=== PATIENT | male | born 1995 | race Caucasian/White ===

== ENCOUNTER 2018-08-11 08:23 | Emergency (ER) | payer OTHER, SELFPAY ==
[2018-08-11 08:24] VITALS: BP 122/71; PULSE 83; RESP 16; TEMP 36.6; O2SAT 100; BMI 23.7
--- NOTE | 2018-08-11 08:58 | ED.VISSUMM ---
- ER Visit Summary Date of Service: 08/11/18 Chief Complaint: Poison key History of Present Illness: The patient is a 22 M who was [place] [employer] [place] days ago. He now has poison key rash to his arms, chest, and abdomen over the past 4 days. He states he has had similar in the past. He has not been taking any [id number] medication for this. Physical Examination: Vital signs unremarkable. Patient sitting on bedside in no acute distress. Heart is regular rate and rhythm. Lung sounds are clear. Skin examination reveals red, slightly raised rash to the bilateral arms, chest, abdomen consistent with contact dermatitis. No sign of secondary infection. Test Results: [] Emergency Department Course and Treatment: Patient be given IM Kenalog here along with p.o. Benadryl. He is given a prescription for Benadryl. Treatment Plan: [] Disposition: Discharge Impression: Poison key This note was generated with [employer] dictation software. It may contain incorrect words, spelling, and punctuation that were not noted in review of the chart prior to signing ED Disposition - Plan for ED Patient: Disposition: Home or Assisted Living Instructions: ED Dermatitis Poison Key Prescriptions: DiphenhydrAMINE [Benadryl] 50 mg PO TID PRN PRN #30 capsule PRN Reason: Itching Referrals: Carlos Roche MD [Primary Care Provider] - As Needed
[2018-08-11] MEDS: Triamcinolone Acetonide 40 MG/ML Vial IM (09:07)
[2018-08-11] MEDS: DiphenhydrAMINE 25 MG Capsule 50 MG PO (09:07)
== END 2018-08-11 09:11 | disposition home or self-care (01) ==
PROVIDERS: Emergency Provider Emergency Medicine; Family Provider Pediatrics; PCP Pediatrics
DX: L23.7 Allergic contact dermatitis due to plants, except food (principal); Z72.0 Tobacco use
CPT/HCPCS: 96372; 99283

== ENCOUNTER 2018-12-15 17:22 | Emergency (ER) | payer OTHER, SELFPAY ==
[2018-12-15 17:23] VITALS: BP 120/63; PULSE 71; RESP 18; TEMP 36.2; O2SAT 99; BMI 21.0
--- NOTE | 2018-12-15 17:32 | ED.VISSUMM ---
- ER Visit Summary Date of Service: 12/15/18 Chief Complaint: [Rash] History of Present Illness: The patient is a 22 M [presents to the emergency department with a rash that started 2 days ago. 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 The rash is pruritic. Patient denies any new soaps, detergents, or other allergens. He denies any medications. Denies any fever or recent illness.] Physical Examination: [HEENT-PERRLA, EOMI. Cranial nerves II through XII grossly intact. TMs clear. Mucous membranes moist. No adenopathy. Cardiovascular-regular rate and rhythm without murmur or ectopy Lungs-clear to auscultation, chest wall stable without crepitus or subcu emphysema Abdomen-normoactive bowel sounds, soft, nontender, no rebound or rigidity, no peritoneal signs. Skin exam-she has a diffuse erythematous rash involving the upper and lower extremities that is erythematous and slightly raised. Rash is blanchable. Rash is pruritic. No vesicles noted. Extremities-intact ?4, normal range of motion, normal pulses, atraumatic] Test Results: [None indicated] Emergency Department Course and Treatment: [She was started on 40 mg of prednisone p.o.] Treatment Plan: [Patient will be treated with prednisone and Atarax and referred to primary care physician for follow-up in 5 to 7 days] Disposition: [Discharged home stable condition] Impression: [Rhus Dermatitis] This note was generated with [employer] dictation software. It may contain incorrect words, spelling, and punctuation that were not noted in review of the chart prior to signing ED Disposition - Plan for ED Patient: Referrals: Carlos Roche MD [Primary Care Provider] -
--- NOTE | 2018-12-15 17:35 | ED.DEP ---
ED Disposition - Plan for ED Patient: Instructions: Poison [place] Dermatitis Prescriptions: hydrOXYzine tablet [Atarax tablet] 10 mg PO TID PRN PRN #20 tab PRN Reason: Itching Prescription Printed Prednisone [Deltasone] 20 mg PO BID #14 tab Prescription Printed Referrals: Carlos Roche MD [Primary Care Provider] - 5-7 Days
[2018-12-15] MEDS: predniSONE 20 MG Tablet 40 MG PO (17:39)
[2018-12-15 17:44] VITALS: RESP 16
--- NOTE | 2018-12-15 17:45 | ED.RN ---
REVIEWED D/C INSTRUCTIONS, FOLLOW UP CARE, PRESCRIPTIONS, AND S/S THAT WOULD WARRANT A RETURN TO THE ED WITH PT. PT VERBALIZED AN UNDERSTANDING AND DENIES FURTHER QUESTIONS FOR THIS RN. PT SKIN P/W/D, RESP EVEN AND UNLABORED, PT A&O X 3, NO DISTRESS NOTED. PT AMBULATED OUT OF ED, GAIT STEADY.
== END 2018-12-15 17:46 | disposition home or self-care (01) ==
LOC: ED 17:41
PROVIDERS: Emergency Provider Emergency Medicine; Family Provider Pediatrics; PCP Pediatrics
DX: L23.7 Allergic contact dermatitis due to plants, except food (principal); Z72.0 Tobacco use
CPT/HCPCS: 99283